=== PATIENT | male | born 1955 | race Asian ===

== ENCOUNTER 2023-07-01 06:33 | Day surgery (SDC) | payer MEDICARE, OTHER ==
[~2023-07-01] VITALS: Ht 157.5 cm; Wt 64.5 kg
[2023-07-01] MEDS ORDERED: SODIUM CHLORIDE 0.9% 1,000 ML ONE (07:07)
[2023-07-01 08:07] LABS: GLUCOMETER DEV NAME(LOC) SDS.; GLUCOSE,POINT OF CARE 90 MG/DL (70-110)
[2023-07-01] MEDS ORDERED: MIDAZOLAM HCL 2 MG/2 ML VIAL ONE (08:09)
[2023-07-01] MEDS ORDERED: FentaNYL CITRATE PF 100 MCG/2 ML VIAL ONE (08:10)
[2023-07-01] MEDS: SODIUM CHLORIDE 0.9% 1,000 ML IV ONE (08:12)
[2023-07-01] MEDS ORDERED: GABA-1181 PO (08:43)
[2023-07-01] MEDS ORDERED: TAMS0.4C94 PO (08:43)
[2023-07-01] MEDS ORDERED: METF-1211 PO (08:43)
[2023-07-01 09:08] VITALS: PULSE 71; RESP 21; O2SAT 100
[2023-07-01] MEDS ORDERED: MethylPREDNISolone SOD SUCC 125 MG/2 ML VIAL ONE (09:19)
[2023-07-01] MEDS: MethylPREDNISolone SOD SUCC 125 MG/2 ML VIAL IVP ONE (09:33)
== END 2023-07-01 12:00 | disposition home or self-care (01) ==
LOC: SURGERY 06:33
PROVIDERS: ATTEND Internal Medicine Critical Care Medicine
DX: J38.4 Edema of larynx (principal); B37.0 Candidal stomatitis; E11.9 Type 2 diabetes mellitus without complications; Z98.890 Other specified postprocedural states; F17.210 Nicotine dependence, cigarettes, uncomplicated; Z87.442 Personal history of urinary calculi
CPT/HCPCS: 31623; 82962; 87206; 87101; 87220; 87070; 88108; 88305; 31624; 71045; 87015; J3010; J2250; J2930; J7030

== ENCOUNTER 2024-11-02 06:29 | Day surgery (SDC) | payer MEDICARE, OTHER ==
[~2024-11-02] VITALS: Ht 166.4 cm; Wt 67.3 kg
[~2024-11-02 06:29] MED LIST: GABA-1181 PO; METF-1211 PO; TAMS0.4C94 PO
[2024-11-02] MEDS: SODIUM CHLORIDE 0.9% 1,000 ML IV ONE (07:46)
[2024-11-02] MEDS ORDERED: MIDAZOLAM HCL 2 MG/2 ML VIAL ONE (08:02)
[2024-11-02] MEDS ORDERED: FentaNYL CITRATE PF 100 MCG/2 ML VIAL ONE (08:02)
[2024-11-02 09:01] LABS: GLUCOMETER DEV NAME(LOC) SDS.; GLUCOSE,POINT OF CARE 104 MG/DL (70-110)
[2024-11-02 09:15] VITALS: PULSE 65; RESP 18; O2SAT 99
[2024-11-02] MEDS ORDERED: MethylPREDNISolone SOD SUCC 125 MG/2 ML VIAL ONE (09:45)
[2024-11-02] MEDS: MethylPREDNISolone SOD SUCC 125 MG/2 ML VIAL IVP ONE (10:17)
== END 2024-11-02 13:20 | disposition home or self-care (01) ==
LOC: SURGERY 06:29
PROVIDERS: ATTEND Internal Medicine Critical Care Medicine
DX: R05.3 Chronic cough (principal); J38.4 Edema of larynx; B37.0 Candidal stomatitis; E11.9 Type 2 diabetes mellitus without complications; I10 Essential (primary) hypertension; E78.00 Pure hypercholesterolemia, unspecified; M17.11 Unilateral primary osteoarthritis, right knee; F17.210 Nicotine dependence, cigarettes, uncomplicated; Z79.899 Other long term (current) drug therapy; Z87.442 Personal history of urinary calculi; Z98.890 Other specified postprocedural states
CPT/HCPCS: 31623; 82962; 87206; 87101; 87220; 87070; 88108; 31624; 94760; 71045; 87015; J3010; J2250; J2919